=== PATIENT | male | born 1990 | race African-American/Black ===

== ENCOUNTER 2019-05-25 17:18 | Emergency (ER) | payer SELFPAY ==
--- NOTE | ~2019-05-25 | XR_ITS ---
EXAMINATION: XR chest 2V DATE: 05/25/2019 18:40 INDICATION: Fever, nausea and vomiting TECHNIQUE: PA and lateral views of the chest are obtained. COMPARISON: None available FINDINGS: The lungs are free of acute opacities. There is no pleural effusion or pneumothorax. The ca rdiomediastinal silhouette is normal. The visualized bones and soft tissues are unremarkable. IMPRESSION: 1. No acute cardiopulmonary abnormality. Reviewed, dictated and finalized at location A. SORTER
[2019-05-25 17:47] VITALS: BP 148/79; PULSE 110; RESP 20; TEMP 39.1; O2SAT 100
[2019-05-25 18:09] VITALS: BP 137/67; PULSE 105; RESP 26; TEMP 38.6; O2SAT 100
--- NOTE | 2019-05-25 18:19 | ED_ITS ---
I attest that this documentation has been prepared under the direction and in the presence of Luis Lagunas MD. Shahriar Nash Scribe 05/25/19;18:19 HPI - Nausea/Vomiting/Diarrhea General Chief complaint: Fever Stated complaint: MONAHAN/vomiting Time Seen by Provider: 05/25/19 18:05 [facility] Social History Social History Gender identity (if verbalized by the patient): Male Course Vital Signs Vital signs: Vital Signs Temperature 39.1 C H 05/25/19 17:47 Pulse Rate 110 H 05/25/19 17:47 Respiratory Rate 20 05/25/19 17:47 Blood Pressure 148/79 H 05/25/19 17:47 Pulse Oximetry 100 05/25/19 17:47 Temperature 38.6 C H 05/25/19 18:09 Pulse Rate 105 H 05/25/19 18:09 Respiratory Rate 26 H 05/25/19 18:09 Blood Pressure 137/67 05/25/19 18:09 Pulse Oximetry 100 05/25/19 18:09
--- NOTE | 2019-05-25 18:21 | ED.URI ---
HPI - URI/Sore Throat General Chief Complaint: Fever Stated Complaint: MONAHAN/vomiting Time Seen by Provider: 05/25/19 18:05 Source: patient and RN notes reviewed Mode of arrival: ambulatory Limitations: no limitations History of Present Illness HPI Narrative: Pt is a 28 y/o male who presents to the ED with c/o flu-like symptoms starting this morning. He notes that he woke up around 12:00 AM this morning with ABD cramping, stating that his stomach was turning. Pt notes that he then developed a throbbing headache after waking up later in the morning. He states that his pain is located diffusely across his head. Pt also reports nausea, vomiting, fever, generalized weakness, and cough as of earlier today. He notes that he has had roughly 12 episodes of emesis throughout the day. Pt denies any vision or hearing changes. He states that he hasn't been around any sick contacts recently. Pt notes that he has tried taking Tylenol for his symptoms. MD elicited complaint: other (Flu-like symptoms) Onset (ago): hour(s) (18) Consistency: progressively worsening Associated symptoms: fever, headache (diffuse), cough, abdominal pain (ABD cramping), nausea, vomiting and other (generalized weakness) Treatments prior to arrival: acetaminophen (Tylenol) Related Data Allergies Allergy/AdvReac Type Severity Reaction Status Date / Time albuterol Allergy Rash Verified 05/25/19 18:50 cefaclor [From Ceclor] Allergy Rash Verified 05/25/19 18:50 Review of Systems Review of Systems: All systems reviewed & are unremarkable except as noted in HPI and below Constitutional: Constitutional: Reports fever(s), Reports headache(s) (diffuse) and Reports weakness (generalized) Eyes: Eyes: Denies change in vision ENT: Reports Normal hearing present Respiratory: Respiratory: Reports cough Gastrointestinal: Gastrointestinal: Reports abdominal pain (ABD cramping), Reports nausea and Reports vomiting PMFSH Past Medical History Medical History Healthy adult male Surgical History Surgical History Hx of adenoidectomy Social History Social History Smoking status: Smoker, status unknown Gender identity (if verbalized by the patient): Male Exam Narrative: Exam Narrative: GENERAL: Uncomfortable-appearing, well-nourished, and in no acute distress. HEAD: Normocephalic, atraumatic. ENT: Mucous membranes moist. NECK: Supple. CHEST: Clear to auscultation. No respiratory distress. HEART: Tachycardic and regular. Normal peripheral pulses. ABDOMEN: Soft, nontender, nondistended. EXTREMITIES: Normal range of motion. No edema. SKIN: Warm, dry, no rash. NEURO: Alert and oriented x3. Course Course Emergency Course: Hydrated with 2 L IV fluid. Tolerating p.o. Discharge home. Discussed diagnosis and treatment plan and patient verbalized understanding. Vital Signs Vital signs: Vital Signs Temperature 102.3 F H 05/25/19 17:47 Pulse Rate 110 H 05/25/19 17:47 Respiratory Rate 20 05/25/19 17:47 Blood Pressure 148/79 H 05/25/19 17:47 Pulse Oximetry 100 05/25/19 17:47 Temperature 101.3 F H 05/25/19 18:55 Pulse Rate 110 H 05/25/19 18:55 Respiratory Rate 20 05/25/19 18:55 Blood Pressure 139/91 H 05/25/19 18:55 Pulse Oximetry 100 05/25/19 18:55 MDM - URI/Sore Throat Lab Data Result diagrams: 05/25/19 18:25 05/25/19 18:25 Labs: Lab Results 05/25/19 05/25/19 05/25/19 Range/Units 18:25 18:25 18:25 WBC 6.5 (4.5-10.0) K/mm3 RBC 5.13 (4.6-6.20) M/mm3 Hgb 15.6 (14.0-18.0) g/dL Hct 44.2 (42.0-52.0) % MCV 86.2 (80-100) fl MCH 30.4 (26-34) pg MCHC 35.3 (32-36) g/dl RDW 12.9 (11.5-14.5) % Plt Count 147 L (150-375) k/mm3 MPV 10.8 H (7.4-10.4) fl Immature Gran % (Auto) 0.3 (0-0.5) % Neut % (Auto) 82.3 H (4
[2019-05-25 18:32] LABS: Basophils Percent Auto 0.2 % (0.2-1.2); Eosinophils Absolute Auto 0.1 K/mm3 (0-0.3); Eosinophils Percent Auto 1.5 % (0-4.4); Hematocrit 44.2 % (42.0-52.0); Hemoglobin 15.6 g/dL (14.0-18.0); Immature Granulocyte Absolute 0.02 K/mm3 (0.00-0.031); Immature Granulocyte Percent A 0.3 % (0-0.5); Lymphocytes Absolute Auto 0.35 K/mm3 (0.9-3.2); Lymphocytes Percent Auto 5.4 % (18.3-44.2); Mean Corpuscular HGB Conc 35.3 g/dl (32-36); Mean Corpuscular Hemoglobin 30.4 pg (26-34); Mean Corpuscular Volume 86.2 fl (80-100); Mean Platelet Volume 10.8 fl (7.4-10.4); Monocytes Absolute Auto 0.7 K/mm3 (0.1-0.6); Monocytes Percent Auto 10.3 % (2.6-8.5); Neutrophils Absolute Auto 5.4 K/mm3 (1.3-6.7); Neutrophils Percent Auto 82.3 % (45.5-73.1); Platelet Count Result 147 k/mm3 (150-375); Red Blood Count 5.13 M/mm3 (4.6-6.20); Red Cell Distribution Width 12.9 % (11.5-14.5); White Blood Count 6.5 K/mm3 (4.5-10.0)
[2019-05-25 18:41] LABS: INR 1.1; Prothrombin Time 13.5 Seconds (11.1-14.7)
[2019-05-25 18:42] LABS: Lactic Acid Reflex 1.2 mmol/L (0.7-2.1)
[2019-05-25 18:46] LABS: Alanine Aminotransferase 29 U/L (4-50); Albumin Level 4.6 g/dL (3.5-5.1); Alkaline Phosphatase 101 U/L (38-126); Aspartate Amino Transferase 25 U/L (17-59); Bilirubin,Total 0.7 mg/dL (0.2-1.3); Blood Urea Nitrogen 8 mg/dL (9-20); CRP 3.2 mg/dL (<1.0); Calcium 9.3 mg/dL (8.4-10.2); Carbon Dioxide 21 mmol/L (22-30); Chloride 98 mmol/L (98-107); Estimated CRCL calculation 102 ml/min; Estimated Glomerular Filt Rate > 60; Glucose 90 mg/dL (75-110); Potassium 3.4 mmol/L (3.4-5.0); Sodium 135 mmol/L (137-145)
[2019-05-25] MEDS: SODIUM CHLORIDE 0.9% IV 1,000 ML 999 ML IV CONT ×2 (18:50→20:18)
[2019-05-25] MEDS: KETOROLAC 30 MG/ML VIAL (*BKC) IV PUSH (18:52)
[2019-05-25] MEDS: ONDANSETRON INJ 4 MG/2 ML VIAL IV PUSH (18:54)
[2019-05-25 18:55] VITALS: BP 139/91; PULSE 110; RESP 20; TEMP 38.5; O2SAT 100
[2019-05-25 19:53] LABS: Add Urine Microscopic? YES; Appearance Urine Clear (Clear); Bacteria Urine Trace /hpf; Bilirubin Urine Negative (Negative); Blood Urine Negative (Negative); Color Urine Yellow (Yellow); Glucose Urine UA Negative (Negative); Ketones Urine 2+ mg/dL (Negative); Leukocyte Esterase Ur Trace LEU/UL (Negative); Mucus Urine Few /lpf; Nitrate Urine Negative (Negative); Protein Urine Negative (Negative); Squamous Epithelial Cell Urine Rare /hpf (Few)
[2019-05-25 21:03] VITALS: BP 147/74; PULSE 103; RESP 18; O2SAT 100
--- NOTE | 2019-06-02 03:56 | PC.NURSE ---
LATE ENTRY This note is being entered to document information to the patient's record. The following information was omitted on [05/25/2019], NS stop time 0.
== END 2019-05-25 21:05 | disposition home or self-care (01) ==
PROVIDERS: Emergency Medicine Emergency Medical Services; Emergency Provider Emergency Medicine
DX: J10.1 Influenza due to other identified influenza virus with other respiratory manifestations (principal)
CPT/HCPCS: 36415; 71046; 80053; 81001; 83605; 85025; 85610; 85730; 86140; 87040; 87804; 96361; 96374; 96375; 99284; J1885; J2405; J7030